=== PATIENT | female | born 2000 | race Caucasian/White ===

== ENCOUNTER 2023-10-08 14:17 | Outpatient (CLI) | payer BC, SELFPAY ==
[2023-10-09 00:21] LABS: Chlamydia DNA Amplified* NOT DETECTED (No Detected); GC DNA Amplified* NOT DETECTED (No Detected)
== END 2023-10-08 14:18 | disposition home or self-care (01) ==
PROVIDERS: PCP Physician Assistant Medical; Visit Provider Nurse Practitioner Family
DX: Z11.3 Encounter for screening for infections with a predominantly sexual mode of transmission (principal)
CPT/HCPCS: 87491; 87591

== ENCOUNTER 2024-03-31 13:16 | Outpatient (CLI) | payer BC, SELFPAY | END 2024-03-31 13:17 | disposition home or self-care (01) | LOC: LKVREF 13:17 | PROVIDERS: PCP Physician Assistant Medical; Visit Provider Family Medicine | DX: H60.01 Abscess of right external ear (principal) | CPT/HCPCS: 87070 ==

== ENCOUNTER 2024-04-01 22:45 | Emergency (ER) | payer BC, SELFPAY ==
[2024-04-01 23:06] VITALS: BP 119/80; PULSE 84; RESP 16; TEMP 36.8; O2SAT 98; BMI 28.3
[2024-04-02] MEDS: LIDOCAINE/EPINEP/TETRACAINE 3 ML GEL..ML. TOPICAL (00:57)
--- OUTSIDE RECORDS SUMMARY | 2024-04-02 00:57 | XMS_ITS | Clinical Summary ---
Author Organization [place] Address [address] [place] [id number] Care Team Providers Care Assistant Professor Of Criminal Justice Name Role Phone Sera Mccarthy PA-C Primary Care Provider Raleigh Lock Unavailable [phone] Allergies No known active allergies Medications Medication Sig Dispensed Refills Start Date End Date Status vitamin C (ASCORBIC ACID) 1000 MG TABS Take 1,000 mg by mouth daily Active oxyCODONE-acetaminop hen (PERCOCET) 5-325 MG tabletIndications:St atus post bilateral breast reduction,Macromasti a Take 1-2 tablets by mouth every 4 hours as needed for moderate to severe pain 30 tablet 03/01/2020 Active senna-docusate (SENOKOT-S/PERICOLAC E) 8.6-50 MG tabletIndications:St atus post bilateral breast reduction,Macromasti a Take 1-2 tablets by mouth 2 times daily 30 tablet 03/01/2020 Active Social History Tobacco Use Types Packs/Day Years Used Date Smoking Tobacco: Never Smokeless Tobacco: Never Alcohol Use Standard Drinks/Week Comments Never 0 (1 standard drink = 0.6 oz pur e alcohol) AUDIT-C Answer Date Recorded Q1: How often do you have a drink containing alc ohol? Never 03/01/2020 Average Number of Drinks Not on file 020 Frequency of Binge Drinking Not on file 08/2019 Adolescent Education Answer Date Record ed Getting School Help Needed Not on file 03/21 Sex and Gender Information Value Date Recorded Sex Assigned at Not on file Gender Identity Not on file Sexual Orientation Not on file Last Filed Vital Signs Vital Sign Reading Time Taken Comments Blood Pressure 90/57 04/17/2021 3:50 PM CDT Pulse 121 04/17/2021 3:50 PM CDT Temperature 37.6 ??C (99.6 ??F) 04/17/2021 3:50 PM CD T Respiratory Rate 14 03/01/2020 2:55 PM CDT Oxygen Saturation 97% 04/09/2021 2:40 PM CDT Inhaled Oxygen Concentration - - Weight 68.6 kg (151 lb 4.8 oz) 04/16/2021 9:47 A M CDT Height 167.6 cm (5' 6) 04/16/2021 9:47 AM CDT Body Mass Index 24.42 04/16/2021 9:47 AM CDT Plan of Treatment Health Maintenance Due Date Last Done Comments ADVANCE CARE PLANNING 2001 ANNUAL REVIEW OF HM ORDERS 2001 CHLAMYDIA SCREENING 2001 YEARLY PREVENTIVE VISIT 2001 HIV SCREENING 2016 HEPATITIS C SCREENING 2019 PAP 2022 PHQ-2 (once per calendar year) 2023 DTAP/TDAP/TD IMMUNIZATION (6 - Td or Tdap) 10/20/2023 10/19/2013, 12/08/2002, 2001, Additional history exists INFLUENZA VACCINE (#1) 2024 2, 05/11/2015, 03/19/2009, Additional history exists HEPATITIS B IMMUNIZATION Completed 002, 2001, 2001, Additional history exists Pneumococcal Vaccine: Pediatrics (0 to 5 Years) and At-Risk Patients (6 to 64 Years) Aged Out 03/15/2002, 2001, 2001, Additional history exists No longer eligible based on patient's age to complete this topic IPV IMMUNIZATION Completed 12/08/2002, , 2001, Additional history exists HPV IMMUNIZATION Completed 05/03/2014, , 10/19/2013 MENINGITIS IMMUNIZATION Completed 01/13/2020, 10/19 COVID-19 Vaccine Completed 06/17/2023, , 05/29/2021, Additional history exists RSV MONOCLONAL ANTIBODY Aged Out No l onger eligible based on patient's age to complete this topic Care Teams Assistant Professor Of Criminal Justice Relationship Specialty Start Date End Date Sera Mccarthy PA-C [facility] [address] [place] [address] PCP - General Physician Web Analytics Specialist 02/23/20 Raleigh Lock PA [address] [place] [id number] Assigned PCP 09/12/21
--- OUTSIDE RECORDS SUMMARY | 2024-04-02 00:57 | XMS_ITS | Referral Summary ---
Author Organization [facility] Address [address] [place] [address] Care Team Providers Care Solution Design And Analysis Manager Name Role Phone Sera Mccarthy PA-C Primary Care Provider Raleigh Lock Unavailable [phone] Allergies No known active allergies Medications [...] 04/16/2021 9:47 AM CDT Plan of Treatment Not on file Care Teams Solution Design And Analysis Manager Relationship Specialty Start Date End Date Sera Mccarthy PA-C [facility] [address] [place] [address] PCP - General Physician Grocery Shopper 02/23/20 Raleigh Lock PA [address] [place] [id number] Assigned PCP 09/12/21
--- NOTE | 2024-04-02 01:01 | ED_ITS ---
HPI - Ear Problem General Date Seen: 04/02/24 Chief complaint: Ear/Nose/Throat Problem Stated complaint: right ear cyst Time Seen by Provider: 04/01/24 23:53 Source: patient Mode of arrival: ambulatory Limitations: no limitations History of Present Illness HPI Narrative: Patient is a 23-year-old female presenting to emergency department for abscess within right ear now. On 03/29/2024. She was seen in clinic for otitis externa. Was started on Keflex. Two days later she went to the clinic again get she is not developing an abscess in the same area that is blocking the data processing auditor y canal. It is right before the start of the external auditory canal. She had it drained yesterday and was switched to Augmentin. She was doing well and felt all the swelling improved greatly but now she states she is draining again and is painful. She has some mild pain right anterior to her ear. No pain noted posterior to the ear no swelling noted around the ear. Denies fevers, chills. No other concerns noted. Related Data Home Medications ?Medication ?Instructions ?Recorded ?Confirmed cetirizine 10 mg tablet (Zyrtec) 10 mg PO QDAY PRN 12/02/22 03/31/24 Previous Rx's ?Medication ?Instructions ?Recorded albuterol sulfate 90 mcg/actuation 2 puff inhalation Q4H PRN 12/02/22 aerosol inhaler (Proventil HFA) shortness of breath or wheezing #8.5 grams norgestimate 0.25 mg-ethinyl 1 tab PO QDAY #84 tabs 10/08/23 estradiol 35 mcg tablet (Sprintec (28)) fluticasone 250 mcg-salmeterol 50 1 inh inhalation BID #60 ea 01/05/24 mcg/dose blistr powdr for inhalation (Advair Diskus) fluticasone propionate 50 2 spray intranasal QDAY #16 grams 01/05/24 mcg/actuation nasal spray,suspension (Flonase Allergy Relief) escitalopram oxalate 10 mg tablet 15 mg (1.5 x 10 mg) PO DAILY #135 03/24/24 tabs amoxicillin 875 mg-potassium 1 tab PO BID #20 tabs 03/31/24 clavulanate 125 mg tablet ciprofloxacin HCl 750 mg tablet 750 mg PO BID 7 days #14 tabs 04/02/24 Allergies Allergy/AdvReac Type Severity Reaction Status Date / Time No Known Allergies Allergy Verified 03/31/24 12:45 Review of Systems Narrative: Pertinent systems reviewed and were negative unless stated in HPI PFSH [facility] Medical History History of concussion ?Z87.820 - Personal history of traumatic brain injury (ICD-10) Surgical History History of bilateral breast reduction surgery ?Z98.890 - Other specified postprocedural states (ICD-10) Family History Brother Type 1 diabetes mellitus Social History Smoking Status: Never smoker Little interest or pleasure in doing things: not at all Feeling down, depressed, or hopeless: not at all Exam Narrative: Exam Narrative: Const: Well-nourished, Well-developed, in mild distress Eyes: PERRL, no conjunctival injection, and symmetrical lids HENT: No pain noted posterior to the rate urine no swelling noted posterior to the ear. Cannot see tympanic membranes as there appears to be an abscess growing from the anterior portion of the external auditory canal right when it 1st starts externally. No issues to left ear. No other concerns noted Neck: Symmetric, trachea midline, No thyromegaly. He remove this MSK:Extremities w/o deformity, Normal Active ROM Skin: Warm, Dry. No rashes or lesions. Neuro: Normal Muscle tone, No focal neurological deficits. Psych: Awake, Alert, & Oriented x3. Appropriate mood and affect. Const: Vital Signs, click to edit/add: Vital Signs - 24 hr 04/01/24 23:06 Temperature 98.2 F Pulse Rate [Pulse Oximeter] 84 Respiratory Rate 16 Blood Pressure [Ri ght Upper Arm] 119/80 Pulse Oximetry 98 Oxygen Delivery Me thod Room Air Course Vital Signs Vital signs: Initial Vital Signs Temperature 98.2 F 04/01/24 23:06 Temperature Source Temporal Artery Scan 04/01/24 23:06 Pulse Rate 84 04/01/24 23:06 Respiratory Rate 16 04/01/24 23:06 Blood Pressure 119/80 04/01/24 23:06 Blood Pressure Mean 93 04/01/24 23:06 Blood Pressure Position Sitting 04/01/24 23:06 Pulse Oximetry 98 04/01/24 23:06 Oxygen Delivery Method Room Air 04/01/24 23:06 Vital Signs Temperature 98.2 F 04/01/24 23:06 Pulse Rate 84 04/01/24 23:06 Respiratory Rate 16 04/01/24 23:06 Blood Pressure 119/80 04/01/24 23:06 Pulse Oximetry 98 04/01/24 23:06 Oxygen Delivery Method Room Air 04/01/24 23:06 Temperature 98.2 F 04/01/24 23:06 Pulse Rate 84 04/01/24 23:06 Respiratory Rate 16 04/01/24 23:06 Blood Pressure 119/80 04/01/24 23:06 Pulse Oximetry 98 04/01/24 23:06 Oxygen Delivery Method Room Air 04/01/24 23:06 Medications Administered Medications: Discontinued Medications Generic Name Dose Route Start Last Admin Trade Name Wardq PRN Reason Stop Dose Admin Lidocaine/Epinephrine/Tetracaine 3 ml 04/02/24 00:53 04/02/24 00:57 Lidocaine/Epinep/Tetracaine 3 Ml Gel..Ml. TOPICAL 04/02/24 00:54 3 ml ONCE ONE Administration Medical Decision Making MDM Narrative Medical decision making narrative: Patient presents for what appears to be an abscess in her right ear. This will be trained. Will put let on to help numbing it so I am able to better drain it. At this time I am not seeing anything concerning for mastoiditis or necrotic d isease. She appears to be clinically stable. The worst I did during the area with a scalpel. Did get a small amount of purulent material out. Consistent the size of the abscess. She is doing well at this time and I do feel comfortable discharging her. I will add Cipro to her current antibiotic regiment. She has follow-up with the primary care doctor next week and I spoke to her about following up with ENT. They plan on doing this. No other concerns noted. Will be discharged Discharge Plan Discharge Clinical Impression: Abscess of right ear canal Patient Disposition: Home, Self-Care Condition: Stable Instructions: Abscess Follow-up (ED) Additional Instructions: Continue take the Augmentin and also add Cipro. Make sure you follow-up with ENT. I provided the local ENT[facility] phone number for sample appointment. Also keep your current follow-up with your primary care provider next week. Return for new or worsening symptoms Prescriptions: New ciprofloxacin HCl 750 mg tablet 750 mg PO BID 7 Days Qty: 14 0RF No Action cetirizine [Zyrtec] 10 mg tablet 10 mg PO QDAY PRN albuterol sulfate [Proventil HFA] 90 mcg/actuation HFA aerosol inhaler 2 puff inhalation Q4H PRN (Reason: shortness of breath or wheezing) Qty: 8.5 11RF norgestimate-ethinyl estradiol [Sprintec (28)] 0.25-35 mg-mcg tablet 1 tab PO QDAY Qty: 84 3RF fluticasone propionate [Flonase Allergy Relief] 50 mcg/actuation spray,suspension 2 spray intranasal QDAY Qty: 16 5RF Rx Instructions: administer into each nostril fluticasone propion-salmeterol [Advair Diskus] 250-50 mcg/dose blister with device 1 inh inhalation BID Qty: 60 1RF amoxicillin-pot clavulanate 875-125 mg tablet 1 tab PO BID Qty: 20 0RF escitalopram oxalate 10 mg tablet 15 mg PO DAILY Qty: 135 1RF Follow Up/Referrals: Sera Mccarthy PA-C [Primary Care Provider] - Stand Alone Forms: MyHealth Info Instructions
[2024-04-02] MEDS: CIPROFLOXACIN 500 MG TABLET 750 MG PO (01:40)
== END 2024-04-02 01:45 | disposition home or self-care (01) ==
PROVIDERS: Emergency Provider Student in an Organized Health Care Education/Training Program; PCP Physician Assistant Medical
DX: H60.01 Abscess of right external ear (principal)
CPT/HCPCS: 99282; A9270